=== PATIENT | female | born 1970 | race Caucasian/White ===

== ENCOUNTER 2021-01-10 07:31 | Emergency (ER) | payer OTHER ==
[~2021-01-10] VITALS: Ht 160 cm; Wt 72.3 kg
[2021-01-10] MEDS ORDERED: VITA1CHW7 PO (07:57)
[2021-01-10] MEDS ORDERED: VITA250T7 PO (07:57)
[2021-01-10] MEDS ORDERED: CALC500T38 PO (07:57)
[2021-01-10] MEDS ORDERED: ASPI81CH33 PO (07:58)
[2021-01-10] MEDS ORDERED: MULT1TAB8 PO (07:58)
[2021-01-10] MEDS ORDERED: CITA20TA6 PO (07:58)
[2021-01-10] MEDS ORDERED: [UNRECOGNIZED DRUG - OTHER] PO (07:58)
[2021-01-10] MEDS ORDERED: diphenhydrAMINE 50MG CAP PO ONE (08:50)
[2021-01-10] MEDS ORDERED: predniSONE 20 MG TAB PO ONE (08:50)
[2021-01-10] MEDS ORDERED: PRED20TA PO (09:17)
[2021-01-10 09:27] VITALS: BP 123/56
== END 2021-01-10 09:29 | disposition home or self-care (01) ==
LOC: M ED 07:31
DX: L50.9 Urticaria, unspecified (principal); Z85.42 Personal history of malignant neoplasm of other parts of uterus; Z79.82 Long term (current) use of aspirin; Z79.899 Other long term (current) drug therapy; Z88.7 Allergy status to serum and vaccine; Z88.0 Allergy status to penicillin
CPT/HCPCS: 99283; J7512